=== PATIENT | male | born 1965 | race Caucasian/White ===

== ENCOUNTER 2022-10-22 12:25 | Inpatient (IN) | payer OTHER ==
[2022-10-22 12:44] VITALS: BMI 21.2
[2022-10-22] MEDS ORDERED: IBUPROFEN 600 MG TABLET (FP) PO PRN (13:28)
[2022-10-22] MEDS ORDERED: DICYCLOMINE HCL 10 MG CAPSULE PO PRN (13:28)
[2022-10-22] MEDS ORDERED: MAGNESIUM HYDROX 2400MG/30ML ORAL SUSPENSION 30 ML CUP PO PRN (13:28)
[2022-10-22] MEDS ORDERED: BUPRENORPHINE HCL 150 MCG, BUPRENORPHINE HCL 75 MCG BC ONE (13:28)
[2022-10-22] MEDS ORDERED: LOPERAMIDE HCL 2 MG CAPSULE PO PRN (13:28)
[2022-10-22] MEDS ORDERED: POLYETHYLENE GLYCOL (HEALTHYLAX) 3350 17 GM PACKET PO PRN (13:28)
[2022-10-22] MEDS ORDERED: cloNIDine HCL 0.1 MG TABLET PO ONE (13:28)
[2022-10-22] MEDS ORDERED: NALOXONE HCL (KLOXXADO) 8 MG SPRAY NS PRN (13:28)
[2022-10-22] MEDS ORDERED: ONDANSETRON *ODT* 4 MG TABLET SL PRN (13:28)
[2022-10-22] MEDS ORDERED: BUPRENORPHINE HCL 150 MCG, BUPRENORPHINE HCL 75 MCG BC PRN (13:28)
[2022-10-22] MEDS ORDERED: chlordiazePOXIDE HCL 25 MG CAPSULE PO PRN (13:28)
[2022-10-22] MEDS ORDERED: BISMUTH SUBSALICYLATE 262 MG/15 ML BTL PO PRN (13:28)
[2022-10-22] MEDS ORDERED: diazePAM 5 MG TABLET PO PRN (13:28)
[2022-10-22] MEDS ORDERED: BENZOCAINE/MENTHOL (CHLORASEPTIC ) LOZENGE MM PRN (13:28)
[2022-10-22] MEDS ORDERED: ACETAMINOPHEN 325 MG TABLET (FP) PO PRN ×2 (13:28)
[2022-10-22] MEDS ORDERED: hydrOXYzine PAMOATE 25 MG CAPSULE (FP) PO PRN (13:28)
[2022-10-22] MEDS ORDERED: IBUPROFEN 400 MG TABLET (FP) PO PRN (13:28)
[2022-10-22] MEDS ORDERED: MAG HYDROX/AL HYDROX/SIMETH 30 ML UNIT-DOSE CUP PO PRN (13:28)
[2022-10-22] MEDS ORDERED: NICOTINE 10 MG CARTRIDGE (INHALER) IH PRN (13:28)
[2022-10-22] MEDS ORDERED: chlordiazePOXIDE HCL 25 MG CAPSULE PO STA (13:49)
[2022-10-22] MEDS ORDERED: chlordiazePOXIDE HCL 25 MG CAPSULE ONE (14:07)
[2022-10-22] MEDS ORDERED: BUPRENORPHINE HCL 150 MCG FILM BC ONE (14:08)
[2022-10-22] MEDS ORDERED: BUPRENORPHINE HCL 75 MCG FILM BC ONE (14:08)
[2022-10-22] MEDS ORDERED: cloNIDine HCL 0.1 MG TABLET ONE (14:09)
[2022-10-22] MEDS: PRENATAL VITAMINS W/ FOLIC ACID TABLET (FP) PO SCH (14:18)
[2022-10-22] MEDS ORDERED: cloNIDine HCL 0.1 MG TABLET PO PRN (17:28)
[2022-10-22] MEDS: chlordiazePOXIDE HCL 25 MG CAPSULE PO SCH ×2 (18:45→22:44)
[2022-10-22] MEDS: THIAMINE HCL 100 MG TABLET (FP) PO SCH (21:49)
[2022-10-22] MEDS: risperiDONE 1 MG TABLET PO SCH (21:56)
[2022-10-22] MEDS ORDERED: MELATONIN 5 MG TABLETS PO SCH (22:00)
[2022-10-22] MEDS: PRAZOSIN HCL 1 MG CAPSULE PO SCH (22:44)
[2022-10-23] MEDS ORDERED: BUPRENORPHINE HCL 150 MCG, BUPRENORPHINE HCL 75 MCG BC PRN
[2022-10-23] MEDS: chlordiazePOXIDE HCL 25 MG CAPSULE PO SCH ×4 (06:11→23:12)
[2022-10-23] MEDS: BUPRENORPHINE HCL 150 MCG, BUPRENORPHINE HCL 75 MCG BC SCH ×2 (06:17→18:02)
[2022-10-23] MEDS: PRENATAL VITAMINS W/ FOLIC ACID TABLET (FP) PO SCH (10:37)
[2022-10-23] MEDS: SERTRALINE HCL 25 MG TABLET (FP) PO SCH (10:52)
[2022-10-23 11:31] LABS: HEMATOCRIT 34.5 % (35.4-49); HEMOGLOBIN 11.4 GM/dL (11.7-16.9); MCH 28.5 pg (25.7-33.7); MEAN CELL VOLUME 86.4 fl (80-96); MEAN PLT VOLUME 8.2 fl (7.5-11.1); PLATELET COUNT 293 10^3/uL (134-434); RBC 3.99 M/mm3 (4.00-5.60); RDW 13.8 % (11.9-15.9); WHITE BLOOD COUNT 2.8 K/mm3 (4.0-10.0)
[2022-10-23 11:42] LABS: BLOOD UREA NITROGEN 14.1 mg/dL (7-18); CREATININE 0.8 mg/dL (0.55-1.3)
[2022-10-23 11:44] LABS: ALBUMIN 2.7 g/dl (3.4-5.0)
[2022-10-23 11:45] LABS: BILIRUBIN,TOTAL 0.3 mg/dL (0.2-1); CALCIUM 8.6 mg/dL (8.5-10.1); TOT PROT 6.1 g/dl (6.4-8.2)
[2022-10-23] MEDS: PRAZOSIN HCL 1 MG CAPSULE PO SCH (23:11)
[2022-10-23] MEDS: risperiDONE 1 MG TABLET PO SCH (23:11)
[2022-10-23] MEDS: THIAMINE HCL 100 MG TABLET (FP) PO SCH (23:13)
[2022-10-24] MEDS: BUPRENORPHINE HCL 450 MCG FILM BC SCH ×2 (06:09→17:56)
[2022-10-24] MEDS: chlordiazePOXIDE HCL 25 MG CAPSULE PO SCH ×4 (06:09→22:49)
[2022-10-24] MEDS: SERTRALINE HCL 25 MG TABLET (FP) PO SCH (10:44)
[2022-10-24] MEDS: PRENATAL VITAMINS W/ FOLIC ACID TABLET (FP) PO SCH (10:44)
[2022-10-24] MEDS: METHOCARBAMOL 500 MG TABLET PO PRN (10:45)
[2022-10-24] MEDS: SUVOREXANT 10 MG TABLET PO PRN (22:48)
[2022-10-24] MEDS: PRAZOSIN HCL 1 MG CAPSULE PO SCH (22:48)
[2022-10-24] MEDS: risperiDONE 1 MG TABLET PO SCH (22:49)
[2022-10-24] MEDS: THIAMINE HCL 100 MG TABLET (FP) PO SCH (22:49)
[2022-10-25] MEDS ORDERED: chlordiazePOXIDE HCL 10 MG CAPSULE PO PRN
[2022-10-25] MEDS: chlordiazePOXIDE HCL 10 MG CAPSULE PO SCH ×4 (05:56→22:00)
[2022-10-25] MEDS: BUPRENORPHINE/NALOXONE 4 MG/1 MG FILM PACKET SL SCH ×2 (05:56→17:09)
[2022-10-25] MEDS: PRENATAL VITAMINS W/ FOLIC ACID TABLET (FP) PO SCH (10:38)
[2022-10-25] MEDS: METHOCARBAMOL 500 MG TABLET PO PRN (10:40)
[2022-10-25] MEDS: SERTRALINE HCL 25 MG TABLET (FP) PO SCH (10:40)
[2022-10-25] MEDS: SUVOREXANT 10 MG TABLET PO PRN (21:26)
[2022-10-25] MEDS: PRAZOSIN HCL 1 MG CAPSULE PO SCH ×2 (22:00→22:43)
[2022-10-25] MEDS: THIAMINE HCL 100 MG TABLET (FP) PO SCH (22:00)
[2022-10-25] MEDS: risperiDONE 1 MG TABLET PO SCH (22:00)
[2022-10-26] MEDS: chlordiazePOXIDE HCL 10 MG CAPSULE PO SCH ×2 (05:46→17:35)
[2022-10-26] MEDS ORDERED: BUPRENORPHINE/NALOXONE 8 MG/2 MG FILM PACKET SL ONE (06:00)
[2022-10-26] MEDS: PRENATAL VITAMINS W/ FOLIC ACID TABLET (FP) PO SCH (10:36)
[2022-10-26] MEDS: SERTRALINE HCL 25 MG TABLET (FP) PO SCH (10:36)
[2022-10-26] MEDS: risperiDONE 1 MG TABLET PO SCH (21:57)
[2022-10-26] MEDS: PRAZOSIN HCL 1 MG CAPSULE PO SCH (21:57)
[2022-10-26] MEDS: THIAMINE HCL 100 MG TABLET (FP) PO SCH (21:58)
[2022-10-27] MEDS ORDERED: chlordiazePOXIDE HCL 10 MG CAPSULE PO ONE (05:00)
[2022-10-27] MEDS ORDERED: BUPRENORPHINE/NALOXONE 8 MG/2 MG FILM PACKET SL ONE (09:15)
[2022-10-27] MEDS: METHOCARBAMOL 500 MG TABLET PO PRN (09:54)
[2022-10-27] MEDS: SERTRALINE HCL 25 MG TABLET (FP) PO SCH (09:54)
[2022-10-27] MEDS: PRENATAL VITAMINS W/ FOLIC ACID TABLET (FP) PO SCH (09:54)
[2022-10-27] MEDS: THIAMINE HCL 100 MG TABLET (FP) PO SCH (22:20)
[2022-10-27] MEDS: PRAZOSIN HCL 1 MG CAPSULE PO SCH (22:20)
[2022-10-27] MEDS: risperiDONE 1 MG TABLET PO SCH (22:20)
[2022-10-28] MEDS: SERTRALINE HCL 25 MG TABLET (FP) PO SCH (09:26)
[2022-10-28] MEDS: PRENATAL VITAMINS W/ FOLIC ACID TABLET (FP) PO SCH (09:26)
[2022-10-28 09:29] VITALS: BP 101/68; PULSE 87; TEMP 97.6
[2022-10-28 09:32] VITALS: RESP 18
== END 2022-10-28 09:30 | disposition home or self-care (01) | DRG 773 ==
LOC: YASAS 12:25 → Y6N 13:59
PROVIDERS: ADMIT Allergy & Immunology; ATTEND Surgery
PROC: HZ2ZZZZ Detoxification Services for Substance Abuse Treatment (ICD-10-PCS; principal; 2022-10-22)
DX: F13.230 Sedative, hypnotic or anxiolytic dependence with withdrawal, uncomplicated (principal); F11.20 Opioid dependence, uncomplicated; F31.9 Bipolar disorder, unspecified; F25.1 Schizoaffective disorder, depressive type; F43.10 Post-traumatic stress disorder, unspecified; D72.819 Decreased white blood cell count, unspecified; Z62.810 Personal history of physical and sexual abuse in childhood; Z20.822 Contact with and (suspected) exposure to COVID-19; Z87.891 Personal history of nicotine dependence
CPT/HCPCS: 36415; 80053; 85027; 86593; 86780; C9803-CS; J2794; U0003; U0005

== ENCOUNTER 2023-02-10 19:31 | Inpatient (IN) | payer OTHER ==
[2023-02-10 22:05] VITALS: BMI 22.9
[2023-02-11] MEDS ORDERED: NALOXONE HCL 0.4 MG/ML VIAL IM PRN (02:19)
[2023-02-11] MEDS ORDERED: MAG HYDROX/AL HYDROX/SIMETH 30 ML UNIT-DOSE CUP PO PRN (02:19)
[2023-02-11] MEDS ORDERED: ACETAMINOPHEN 325 MG TABLET (FP) PO PRN (02:19)
[2023-02-11] MEDS ORDERED: BISMUTH SUBSALICYLATE 524 MG/30 ML PO PRN (02:19)
[2023-02-11] MEDS ORDERED: ONDANSETRON *ODT* 4 MG TABLET SL PRN (02:19)
[2023-02-11] MEDS ORDERED: POLYETHYLENE GLYCOL (HEALTHYLAX) 3350 17 GM PACKET PO PRN (02:19)
[2023-02-11] MEDS ORDERED: BENZOCAINE/MENTHOL (CHLORASEPTIC ) LOZENGE MM PRN (02:19)
[2023-02-11] MEDS ORDERED: IBUPROFEN 400 MG TABLET (FP) PO PRN (02:19)
[2023-02-11] MEDS ORDERED: MAGNESIUM HYDROX 2400MG/30ML ORAL SUSPENSION 30 ML CUP PO PRN (02:19)
[2023-02-11] MEDS ORDERED: DICYCLOMINE HCL 10 MG CAPSULE PO PRN (02:19)
[2023-02-11] MEDS ORDERED: NALOXONE HCL (KLOXXADO) 8 MG SPRAY NS PRN (02:19)
[2023-02-11] MEDS ORDERED: guaiFENesin 600 MG TABLET.ER (FP) PO PRN (02:19)
[2023-02-11] MEDS ORDERED: IBUPROFEN 600 MG TABLET (FP) PO PRN (02:19)
[2023-02-11] MEDS ORDERED: BENZONATATE 200 MG CAPSULE PO PRN (02:19)
[2023-02-11] MEDS ORDERED: methaDONE HCL 10 MG TABLET (FOR DETOX USE ONLY) PO ONE ×2 (08:56→11:00)
[2023-02-11] MEDS ORDERED: cloNIDine HCL 0.1 MG TABLET PO PRN (08:56)
[2023-02-11] MEDS: LOPERAMIDE HCL 2 MG CAPSULE PO PRN (10:25)
[2023-02-11] MEDS: PRENATAL VITAMINS W/ FOLIC ACID TABLET (FP) PO SCH (10:49)
[2023-02-11] MEDS: METHOCARBAMOL 500 MG TABLET PO PRN (10:49)
[2023-02-11] MEDS: chlordiazePOXIDE HCL 25 MG CAPSULE PO SCH ×3 (10:50→22:45)
[2023-02-11] MEDS: risperiDONE 1 MG TABLET PO SCH ×2 (12:13→22:44)
[2023-02-11] MEDS ORDERED: MELATONIN 5 MG TABLETS PO SCH (22:00)
[2023-02-11] MEDS: PRAZOSIN HCL 1 MG CAPSULE PO SCH (22:44)
[2023-02-11] MEDS: THIAMINE HCL 100 MG TABLET (FP) PO SCH (22:45)
[2023-02-11] MEDS: SUVOREXANT 10 MG TABLET PO PRN (22:46)
[2023-02-12] MEDS: chlordiazePOXIDE HCL 25 MG CAPSULE PO SCH ×4 (05:48→22:28)
[2023-02-12] MEDS: PRENATAL VITAMINS W/ FOLIC ACID TABLET (FP) PO SCH (10:27)
[2023-02-12] MEDS: risperiDONE 1 MG TABLET PO SCH ×2 (10:31→22:28)
[2023-02-12 11:23] LABS: HEMATOCRIT 38.2 % (35.4-49); HEMOGLOBIN 13.3 GM/dL (11.7-16.9); MCH 29.2 pg (25.7-33.7); MCHC 34.7 g/dl (32.0-35.9); MEAN CELL VOLUME 84.3 fl (80-96); MEAN PLT VOLUME 8.5 fl (7.5-11.1); PLATELET COUNT 223 10^3/uL (134-434); RBC 4.54 M/mm3 (4.00-5.60); RDW 13.6 % (11.9-15.9); WHITE BLOOD COUNT 4.7 K/mm3 (4.0-10.0)
[2023-02-12 11:48] LABS: BLOOD UREA NITROGEN 14.1 mg/dL (7-18); CALCIUM 8.7 mg/dL (8.5-10.1)
[2023-02-12 11:51] LABS: CREATININE 0.9 mg/dL (0.55-1.3)
[2023-02-12 11:53] LABS: TOT PROT 6.3 g/dl (6.4-8.2)
[2023-02-12] MEDS: PRAZOSIN HCL 1 MG CAPSULE PO SCH (22:28)
[2023-02-12] MEDS: THIAMINE HCL 100 MG TABLET (FP) PO SCH (22:28)
[2023-02-12] MEDS: SUVOREXANT 10 MG TABLET PO PRN (22:29)
[2023-02-12] MEDS: METHOCARBAMOL 500 MG TABLET PO PRN (22:30)
[2023-02-12] MEDS: LOPERAMIDE HCL 2 MG CAPSULE PO PRN (22:32)
[2023-02-13] MEDS: chlordiazePOXIDE HCL 25 MG CAPSULE PO SCH ×4 (05:34→22:32)
[2023-02-13] MEDS ORDERED: methaDONE HCL 10 MG TABLET (FOR DETOX USE ONLY) PO ONE (10:00)
[2023-02-13] MEDS: PRENATAL VITAMINS W/ FOLIC ACID TABLET (FP) PO SCH (10:14)
[2023-02-13] MEDS: risperiDONE 1 MG TABLET PO SCH ×2 (10:15→22:32)
[2023-02-13] MEDS: THIAMINE HCL 100 MG TABLET (FP) PO SCH (22:32)
[2023-02-13] MEDS: PRAZOSIN HCL 1 MG CAPSULE PO SCH (22:32)
[2023-02-13] MEDS: SUVOREXANT 10 MG TABLET PO PRN (22:32)
[2023-02-14] MEDS: chlordiazePOXIDE HCL 10 MG CAPSULE PO SCH ×4 (05:53→22:16)
[2023-02-14] MEDS: METHOCARBAMOL 500 MG TABLET PO PRN (10:13)
[2023-02-14] MEDS: PRENATAL VITAMINS W/ FOLIC ACID TABLET (FP) PO SCH (10:13)
[2023-02-14] MEDS: risperiDONE 1 MG TABLET PO SCH ×2 (10:13→22:16)
[2023-02-14] MEDS: SUVOREXANT 10 MG TABLET PO PRN (21:46)
[2023-02-14] MEDS: THIAMINE HCL 100 MG TABLET (FP) PO SCH (22:15)
[2023-02-14] MEDS: PRAZOSIN HCL 1 MG CAPSULE PO SCH (22:16)
[2023-02-15] MEDS: chlordiazePOXIDE HCL 10 MG CAPSULE PO SCH ×2 (05:38→17:41)
[2023-02-15] MEDS ORDERED: methaDONE HCL 10 MG TABLET (FOR DETOX USE ONLY) PO ONE (10:00)
[2023-02-15] MEDS: METHOCARBAMOL 500 MG TABLET PO PRN ×2 (10:08→23:23)
[2023-02-15] MEDS: PRENATAL VITAMINS W/ FOLIC ACID TABLET (FP) PO SCH (10:08)
[2023-02-15] MEDS: risperiDONE 1 MG TABLET PO SCH ×2 (10:08→23:23)
[2023-02-15] MEDS: THIAMINE HCL 100 MG TABLET (FP) PO SCH (23:23)
[2023-02-15] MEDS: PRAZOSIN HCL 1 MG CAPSULE PO SCH (23:23)
[2023-02-16] MEDS ORDERED: chlordiazePOXIDE HCL 10 MG CAPSULE PO ONE (05:00)
[2023-02-16 07:15] VITALS: TEMP 97.5
[2023-02-16 09:26] VITALS: BP 112/76; PULSE 84; RESP 17
[2023-02-16] MEDS: risperiDONE 1 MG TABLET PO SCH (10:12)
[2023-02-16] MEDS: PRENATAL VITAMINS W/ FOLIC ACID TABLET (FP) PO SCH (10:13)
== END 2023-02-16 12:25 | disposition other institution (70) | DRG 773 ==
LOC: YASAS 19:31 → Y6N 02-11 03:05 → UNDOADMIN 02-11 03:05 → Y6N 02-11 17:28
PROVIDERS: ADMIT Allergy & Immunology; ATTEND Surgery
PROC: HZ2ZZZZ Detoxification Services for Substance Abuse Treatment (ICD-10-PCS; principal; 2023-02-11)
DX: F11.23 Opioid dependence with withdrawal (principal); F10.230 Alcohol dependence with withdrawal, uncomplicated; F31.9 Bipolar disorder, unspecified; F20.9 Schizophrenia, unspecified; F19.282 Other psychoactive substance dependence with psychoactive substance-induced sleep disorder; F19.24 Other psychoactive substance dependence with psychoactive substance-induced mood disorder; F43.10 Post-traumatic stress disorder, unspecified; Z62.810 Personal history of physical and sexual abuse in childhood; R74.8 Abnormal levels of other serum enzymes; Z87.891 Personal history of nicotine dependence; Z86.19 Personal history of other infectious and parasitic diseases
CPT/HCPCS: 36415; 80053; 85027; 86593; 86780; C9803-CS; Q0162; U0003; U0005

== ENCOUNTER 2023-02-16 12:30 | Inpatient (IN) | payer OTHER ==
[~2023-02-16 12:30] MED LIST: ACETAMINOPHEN 325 MG TABLET (FP) PO PRN; AMMONIUM LACTATE 12% LOTION 225 GM BOTTLE TP PRN; BENZOCAINE/MENTHOL (CHLORASEPTIC ) LOZENGE MM PRN; BENZONATATE 200 MG CAPSULE PO PRN; COLLOIDAL OATMEAL 1 BAR EACH TP PRN; IBUPROFEN 400 MG TABLET (FP) PO PRN; IBUPROFEN 600 MG TABLET (FP) PO PRN; LOPERAMIDE HCL 2 MG CAPSULE PO PRN; MAG HYDROX/AL HYDROX/SIMETH 30 ML UNIT-DOSE CUP PO PRN; MAGNESIUM HYDROX 2400MG/30ML ORAL SUSPENSION 30 ML CUP PO PRN; METHOCARBAMOL 500 MG TABLET PO PRN; NALOXONE HCL (KLOXXADO) 8 MG SPRAY NS PRN; NALOXONE HCL 0.4 MG/ML VIAL IVPUSH PRN; NICOTINE 7 MG/24 HOURS TOPICAL PATCH TD PRN; NICOTINE POLACRILEX 2 MG GUM BUC PRN; POLYETHYLENE GLYCOL (HEALTHYLAX) 3350 17 GM PACKET PO PRN; guaiFENesin 600 MG TABLET.ER (FP) PO PRN; hydrOXYzine PAMOATE 25 MG CAPSULE (FP) PO PRN
[2023-02-16] MEDS: THIAMINE HCL 100 MG TABLET (FP) PO SCH (21:44)
[2023-02-16] MEDS: PRAZOSIN HCL 1 MG CAPSULE PO SCH (21:44)
[2023-02-16] MEDS: SUVOREXANT 10 MG TABLET PO PRN (21:45)
[2023-02-16] MEDS: MELATONIN 5 MG TABLETS PO SCH (21:46)
[2023-02-16] MEDS ORDERED: risperiDONE 0.5 MG TABLET PO SCH (22:00)
[2023-02-16] MEDS: risperiDONE 1 MG TABLET PO SCH (22:10)
[2023-02-17] MEDS: PRENATAL VITAMINS W/ FOLIC ACID TABLET (FP) PO SCH (09:51)
[2023-02-17] MEDS: risperiDONE 1 MG TABLET PO SCH ×2 (09:51→21:25)
[2023-02-17] MEDS: PRAZOSIN HCL 1 MG CAPSULE PO SCH (21:24)
[2023-02-17] MEDS: MELATONIN 5 MG TABLETS PO SCH (21:24)
[2023-02-17] MEDS: THIAMINE HCL 100 MG TABLET (FP) PO SCH (21:24)
[2023-02-17] MEDS: SUVOREXANT 10 MG TABLET PO PRN (21:24)
[2023-02-18] MEDS: risperiDONE 1 MG TABLET PO SCH ×2 (09:37→21:46)
[2023-02-18] MEDS: PRENATAL VITAMINS W/ FOLIC ACID TABLET (FP) PO SCH (09:38)
[2023-02-18] MEDS: BUPRENORPHINE/NALOXONE 8 MG/2 MG FILM PACKET SL SCH ×2 (13:24→21:46)
[2023-02-18] MEDS: MELATONIN 5 MG TABLETS PO SCH (21:25)
[2023-02-18] MEDS: THIAMINE HCL 100 MG TABLET (FP) PO SCH (21:46)
[2023-02-18] MEDS: PRAZOSIN HCL 1 MG CAPSULE PO SCH (21:46)
[2023-02-18] MEDS: SUVOREXANT 10 MG TABLET PO PRN (21:46)
[2023-02-19] MEDS: BUPRENORPHINE/NALOXONE 8 MG/2 MG FILM PACKET SL SCH ×3 (06:53→21:29)
[2023-02-19] MEDS: risperiDONE 1 MG TABLET PO SCH ×2 (09:29→21:29)
[2023-02-19] MEDS: PRENATAL VITAMINS W/ FOLIC ACID TABLET (FP) PO SCH (09:29)
[2023-02-19] MEDS: THIAMINE HCL 100 MG TABLET (FP) PO SCH (21:29)
[2023-02-19] MEDS: PRAZOSIN HCL 1 MG CAPSULE PO SCH (21:29)
[2023-02-19] MEDS: SUVOREXANT 10 MG TABLET PO PRN (21:30)
[2023-02-20] MEDS: BUPRENORPHINE/NALOXONE 8 MG/2 MG FILM PACKET SL SCH ×3 (06:39→21:29)
[2023-02-20] MEDS: risperiDONE 1 MG TABLET PO SCH ×2 (09:18→21:29)
[2023-02-20] MEDS: PRENATAL VITAMINS W/ FOLIC ACID TABLET (FP) PO SCH (09:18)
[2023-02-20] MEDS: SUVOREXANT 10 MG TABLET PO PRN (21:29)
[2023-02-20] MEDS: THIAMINE HCL 100 MG TABLET (FP) PO SCH (21:29)
[2023-02-20] MEDS: PRAZOSIN HCL 1 MG CAPSULE PO SCH (21:29)
[2023-02-21] MEDS: BUPRENORPHINE/NALOXONE 8 MG/2 MG FILM PACKET SL SCH ×3 (07:05→21:30)
[2023-02-21] MEDS: PRENATAL VITAMINS W/ FOLIC ACID TABLET (FP) PO SCH (09:47)
[2023-02-21] MEDS: risperiDONE 1 MG TABLET PO SCH ×2 (09:47→21:30)
[2023-02-21] MEDS: SUVOREXANT 10 MG TABLET PO PRN (21:30)
[2023-02-21] MEDS: THIAMINE HCL 100 MG TABLET (FP) PO SCH (21:30)
[2023-02-21] MEDS: PRAZOSIN HCL 1 MG CAPSULE PO SCH (21:30)
[2023-02-22] MEDS: BUPRENORPHINE/NALOXONE 8 MG/2 MG FILM PACKET SL SCH ×3 (06:10→21:16)
[2023-02-22] MEDS: PRENATAL VITAMINS W/ FOLIC ACID TABLET (FP) PO SCH (09:19)
[2023-02-22] MEDS: risperiDONE 1 MG TABLET PO SCH ×2 (09:19→21:16)
[2023-02-22] MEDS: THIAMINE HCL 100 MG TABLET (FP) PO SCH (21:16)
[2023-02-22] MEDS: PRAZOSIN HCL 1 MG CAPSULE PO SCH (21:16)
[2023-02-22] MEDS: SUVOREXANT 10 MG TABLET PO PRN (21:18)
[2023-02-23] MEDS: BUPRENORPHINE/NALOXONE 8 MG/2 MG FILM PACKET SL SCH ×3 (06:16→21:32)
[2023-02-23] MEDS: risperiDONE 1 MG TABLET PO SCH ×2 (09:30→21:31)
[2023-02-23] MEDS: PRENATAL VITAMINS W/ FOLIC ACID TABLET (FP) PO SCH (09:30)
[2023-02-23] MEDS: PRAZOSIN HCL 1 MG CAPSULE PO SCH (21:31)
[2023-02-23] MEDS: THIAMINE HCL 100 MG TABLET (FP) PO SCH (21:32)
[2023-02-23] MEDS: SUVOREXANT 10 MG TABLET PO PRN (21:33)
[2023-02-24] MEDS: BUPRENORPHINE/NALOXONE 8 MG/2 MG FILM PACKET SL SCH ×3 (06:25→21:36)
[2023-02-24] MEDS: PRENATAL VITAMINS W/ FOLIC ACID TABLET (FP) PO SCH (09:37)
[2023-02-24] MEDS: risperiDONE 1 MG TABLET PO SCH ×2 (09:37→21:36)
[2023-02-24] MEDS: THIAMINE HCL 100 MG TABLET (FP) PO SCH (21:36)
[2023-02-24] MEDS: PRAZOSIN HCL 1 MG CAPSULE PO SCH (21:36)
[2023-02-25] MEDS: BUPRENORPHINE/NALOXONE 8 MG/2 MG FILM PACKET SL SCH ×3 (06:13→21:13)
[2023-02-25] MEDS: PRENATAL VITAMINS W/ FOLIC ACID TABLET (FP) PO SCH (09:49)
[2023-02-25] MEDS: risperiDONE 1 MG TABLET PO SCH ×2 (09:49→21:12)
[2023-02-25] MEDS: PRAZOSIN HCL 1 MG CAPSULE PO SCH (21:12)
[2023-02-25] MEDS: THIAMINE HCL 100 MG TABLET (FP) PO SCH (21:12)
[2023-02-25] MEDS: SUVOREXANT 10 MG TABLET PO PRN (21:13)
[2023-02-26] MEDS: BUPRENORPHINE/NALOXONE 8 MG/2 MG FILM PACKET SL SCH ×3 (06:09→21:26)
[2023-02-26] MEDS: risperiDONE 1 MG TABLET PO SCH ×2 (09:39→21:26)
[2023-02-26] MEDS: PRENATAL VITAMINS W/ FOLIC ACID TABLET (FP) PO SCH (09:39)
[2023-02-26] MEDS: SUVOREXANT 10 MG TABLET PO PRN (21:25)
[2023-02-26] MEDS: THIAMINE HCL 100 MG TABLET (FP) PO SCH (21:26)
[2023-02-26] MEDS: PRAZOSIN HCL 1 MG CAPSULE PO SCH (21:26)
[2023-02-27] MEDS: BUPRENORPHINE/NALOXONE 8 MG/2 MG FILM PACKET SL SCH ×3 (06:21→21:40)
[2023-02-27] MEDS: risperiDONE 1 MG TABLET PO SCH ×2 (10:14→21:40)
[2023-02-27] MEDS: PRENATAL VITAMINS W/ FOLIC ACID TABLET (FP) PO SCH (10:14)
[2023-02-27] MEDS: PRAZOSIN HCL 1 MG CAPSULE PO SCH (21:40)
[2023-02-27] MEDS: SUVOREXANT 10 MG TABLET PO PRN (21:40)
[2023-02-27] MEDS: THIAMINE HCL 100 MG TABLET (FP) PO SCH (21:40)
[2023-02-28] MEDS: BUPRENORPHINE/NALOXONE 8 MG/2 MG FILM PACKET SL SCH ×3 (06:06→21:30)
[2023-02-28] MEDS: risperiDONE 1 MG TABLET PO SCH ×2 (09:33→21:30)
[2023-02-28] MEDS: PRENATAL VITAMINS W/ FOLIC ACID TABLET (FP) PO SCH (09:33)
[2023-02-28] MEDS: THIAMINE HCL 100 MG TABLET (FP) PO SCH (21:29)
[2023-02-28] MEDS: PRAZOSIN HCL 1 MG CAPSULE PO SCH (21:30)
[2023-02-28] MEDS: SUVOREXANT 10 MG TABLET PO PRN (21:30)
[2023-03-01] MEDS: BUPRENORPHINE/NALOXONE 8 MG/2 MG FILM PACKET SL SCH ×3 (06:27→21:19)
[2023-03-01] MEDS: PRENATAL VITAMINS W/ FOLIC ACID TABLET (FP) PO SCH (10:08)
[2023-03-01] MEDS: risperiDONE 1 MG TABLET PO SCH ×2 (10:08→21:19)
[2023-03-01] MEDS: SUVOREXANT 10 MG TABLET PO PRN (21:19)
[2023-03-01] MEDS: THIAMINE HCL 100 MG TABLET (FP) PO SCH (21:19)
[2023-03-01] MEDS: PRAZOSIN HCL 1 MG CAPSULE PO SCH (21:56)
[2023-03-02] MEDS: BUPRENORPHINE/NALOXONE 8 MG/2 MG FILM PACKET SL SCH ×3 (06:21→21:00)
[2023-03-02] MEDS: risperiDONE 1 MG TABLET PO SCH ×2 (09:18→21:01)
[2023-03-02] MEDS: PRENATAL VITAMINS W/ FOLIC ACID TABLET (FP) PO SCH (09:18)
[2023-03-02] MEDS: SUVOREXANT 10 MG TABLET PO PRN (21:01)
[2023-03-02] MEDS: PRAZOSIN HCL 1 MG CAPSULE PO SCH (21:01)
[2023-03-02] MEDS: THIAMINE HCL 100 MG TABLET (FP) PO SCH (21:01)
[2023-03-03] MEDS: BUPRENORPHINE/NALOXONE 8 MG/2 MG FILM PACKET SL SCH ×3 (06:13→21:36)
[2023-03-03] MEDS: risperiDONE 1 MG TABLET PO SCH ×2 (09:36→21:36)
[2023-03-03] MEDS: PRENATAL VITAMINS W/ FOLIC ACID TABLET (FP) PO SCH (09:36)
[2023-03-03] MEDS: THIAMINE HCL 100 MG TABLET (FP) PO SCH (21:36)
[2023-03-03] MEDS: PRAZOSIN HCL 1 MG CAPSULE PO SCH (21:36)
[2023-03-03] MEDS: SUVOREXANT 10 MG TABLET PO PRN (21:38)
[2023-03-04] MEDS: BUPRENORPHINE/NALOXONE 8 MG/2 MG FILM PACKET SL SCH ×3 (06:09→21:17)
[2023-03-04] MEDS: PRENATAL VITAMINS W/ FOLIC ACID TABLET (FP) PO SCH (09:45)
[2023-03-04] MEDS: risperiDONE 1 MG TABLET PO SCH ×2 (09:45→21:17)
[2023-03-04] MEDS: THIAMINE HCL 100 MG TABLET (FP) PO SCH (21:17)
[2023-03-04] MEDS: SUVOREXANT 10 MG TABLET PO PRN (21:18)
[2023-03-04] MEDS: PRAZOSIN HCL 1 MG CAPSULE PO SCH (21:18)
[2023-03-05] MEDS: BUPRENORPHINE/NALOXONE 8 MG/2 MG FILM PACKET SL SCH ×3 (06:26→21:10)
[2023-03-05] MEDS: risperiDONE 1 MG TABLET PO SCH ×2 (10:14→21:10)
[2023-03-05] MEDS: PRENATAL VITAMINS W/ FOLIC ACID TABLET (FP) PO SCH (10:14)
[2023-03-05] MEDS: THIAMINE HCL 100 MG TABLET (FP) PO SCH (21:10)
[2023-03-05] MEDS: PRAZOSIN HCL 1 MG CAPSULE PO SCH (21:10)
[2023-03-05] MEDS: SUVOREXANT 10 MG TABLET PO PRN (21:11)
[2023-03-06] MEDS: BUPRENORPHINE/NALOXONE 8 MG/2 MG FILM PACKET SL SCH ×3 (06:26→21:09)
[2023-03-06] MEDS: PRENATAL VITAMINS W/ FOLIC ACID TABLET (FP) PO SCH (09:39)
[2023-03-06] MEDS: risperiDONE 1 MG TABLET PO SCH ×2 (09:39→21:09)
[2023-03-06] MEDS: THIAMINE HCL 100 MG TABLET (FP) PO SCH (21:08)
[2023-03-06] MEDS: SUVOREXANT 10 MG TABLET PO PRN (21:09)
[2023-03-06] MEDS: PRAZOSIN HCL 1 MG CAPSULE PO SCH (21:09)
[2023-03-07] MEDS: BUPRENORPHINE/NALOXONE 8 MG/2 MG FILM PACKET SL SCH ×3 (06:11→21:16)
[2023-03-07] MEDS: PRENATAL VITAMINS W/ FOLIC ACID TABLET (FP) PO SCH (09:42)
[2023-03-07] MEDS: risperiDONE 1 MG TABLET PO SCH ×2 (09:43→21:16)
[2023-03-07] MEDS: PRAZOSIN HCL 1 MG CAPSULE PO SCH (21:16)
[2023-03-07] MEDS: THIAMINE HCL 100 MG TABLET (FP) PO SCH (21:16)
[2023-03-07] MEDS: SUVOREXANT 10 MG TABLET PO PRN (21:16)
[2023-03-08] MEDS: BUPRENORPHINE/NALOXONE 8 MG/2 MG FILM PACKET SL SCH ×3 (06:02→21:13)
[2023-03-08] MEDS: risperiDONE 1 MG TABLET PO SCH ×2 (09:29→21:13)
[2023-03-08] MEDS: PRENATAL VITAMINS W/ FOLIC ACID TABLET (FP) PO SCH (09:29)
[2023-03-08] MEDS: PRAZOSIN HCL 1 MG CAPSULE PO SCH (21:13)
[2023-03-08] MEDS: THIAMINE HCL 100 MG TABLET (FP) PO SCH (21:13)
[2023-03-08] MEDS: SUVOREXANT 10 MG TABLET PO PRN (21:14)
[2023-03-09] MEDS: BUPRENORPHINE/NALOXONE 8 MG/2 MG FILM PACKET SL SCH ×3 (06:44→21:12)
[2023-03-09] MEDS: risperiDONE 1 MG TABLET PO SCH ×2 (10:01→21:12)
[2023-03-09] MEDS: PRENATAL VITAMINS W/ FOLIC ACID TABLET (FP) PO SCH (10:01)
[2023-03-09] MEDS: THIAMINE HCL 100 MG TABLET (FP) PO SCH (21:12)
[2023-03-09] MEDS: PRAZOSIN HCL 1 MG CAPSULE PO SCH (21:13)
[2023-03-09] MEDS: SUVOREXANT 10 MG TABLET PO PRN (21:14)
[2023-03-10] MEDS: BUPRENORPHINE/NALOXONE 8 MG/2 MG FILM PACKET SL SCH ×3 (06:19→21:29)
[2023-03-10] MEDS: risperiDONE 1 MG TABLET PO SCH ×2 (09:41→21:29)
[2023-03-10] MEDS: PRENATAL VITAMINS W/ FOLIC ACID TABLET (FP) PO SCH (09:41)
[2023-03-10] MEDS: THIAMINE HCL 100 MG TABLET (FP) PO SCH (21:28)
[2023-03-10] MEDS: PRAZOSIN HCL 1 MG CAPSULE PO SCH (21:29)
[2023-03-10] MEDS: SUVOREXANT 10 MG TABLET PO PRN (21:29)
[2023-03-11] MEDS: BUPRENORPHINE/NALOXONE 8 MG/2 MG FILM PACKET SL SCH ×3 (06:20→21:22)
[2023-03-11] MEDS: PRENATAL VITAMINS W/ FOLIC ACID TABLET (FP) PO SCH (10:00)
[2023-03-11] MEDS: risperiDONE 1 MG TABLET PO SCH ×2 (10:00→21:22)
[2023-03-11] MEDS: PRAZOSIN HCL 1 MG CAPSULE PO SCH (21:22)
[2023-03-11] MEDS: THIAMINE HCL 100 MG TABLET (FP) PO SCH (21:22)
[2023-03-11] MEDS ORDERED: SUVOREXANT 10 MG TABLET PO PRN (22:00)
[2023-03-12] MEDS: BUPRENORPHINE/NALOXONE 8 MG/2 MG FILM PACKET SL SCH ×3 (06:13→21:13)
[2023-03-12] MEDS: PRENATAL VITAMINS W/ FOLIC ACID TABLET (FP) PO SCH (09:27)
[2023-03-12] MEDS: risperiDONE 1 MG TABLET PO SCH ×2 (09:27→21:13)
[2023-03-12] MEDS: THIAMINE HCL 100 MG TABLET (FP) PO SCH (21:12)
[2023-03-12] MEDS: PRAZOSIN HCL 1 MG CAPSULE PO SCH (21:13)
[2023-03-13 06:25] VITALS: BP 118/72; PULSE 87; RESP 18; TEMP 97.7
[2023-03-13] MEDS: BUPRENORPHINE/NALOXONE 8 MG/2 MG FILM PACKET SL SCH (07:03)
[2023-03-13] MEDS: PRENATAL VITAMINS W/ FOLIC ACID TABLET (FP) PO SCH (09:25)
[2023-03-13] MEDS: risperiDONE 1 MG TABLET PO SCH (09:25)
== END 2023-03-13 09:27 | disposition home or self-care (01) | DRG 772 ==
LOC: YASAS 12:30 → Y3E 12:32
PROVIDERS: ADMIT Allergy & Immunology; ATTEND Psychiatry & Neurology Pain Medicine
PROC: HZ42ZZZ Group Counseling for Substance Abuse Treatment, Cognitive-Behavioral (ICD-10-PCS; principal; 2023-02-16)
DX: F11.20 Opioid dependence, uncomplicated (principal); F10.20 Alcohol dependence, uncomplicated; F31.9 Bipolar disorder, unspecified; F20.9 Schizophrenia, unspecified; F43.10 Post-traumatic stress disorder, unspecified; Z87.891 Personal history of nicotine dependence; Z86.19 Personal history of other infectious and parasitic diseases; Z56.0 Unemployment, unspecified; Z59.00 Homelessness unspecified
CPT/HCPCS: 36415; 86803